=== PATIENT | female | born 2000 | race American Indian/Alaskan Native ===

== ENCOUNTER 2021-08-12 03:27 | Emergency (ER) | payer BC ==
[2021-08-12] MEDS ORDERED: Ondansetron PF 4 MG/2 ML Vial ONE (03:43)
== END 2021-08-12 05:36 | disposition home or self-care (01) ==
LOC: CSHERS 03:27
DX: F10.129 Alcohol abuse with intoxication, unspecified (principal)
CPT/HCPCS: 93005; 93010; 96374; J2405